=== PATIENT | male | born 2000 | race Caucasian/White ===

== ENCOUNTER 2021-01-28 18:03 | Emergency (ER) | payer OTHER, SELFPAY ==
--- NOTE | ~2021-01-28 | XR_ITS ---
EXAMINATION: RADIOGRAPHS LEFT HAND/WRIST CLINICAL INFORMATION: Rule out fracture COMPARISON: None TECHNIQUE: 4 views of the left hand/wrist were obtained. FINDINGS: Nondisplaced fracture through the body of the scaphoid bone. Carpal rows are maintained. No metacarpal or phalangeal fracture. Visualized portion of the distal radius and ulna demonstrate no fracture. No significant focal soft tissue swelling identified. No radiopaque foreign body. XR/XR hand wrist LT IMPRESSION: Nondisplaced scaphoid fracture.
[2021-01-28 19:39] VITALS: BP 141/77; PULSE 104; RESP 16; TEMP 36.6; O2SAT 95; BMI 22.3
--- NOTE | 2021-01-28 20:31 | ED.EXTPRO ---
HPI - Extremity Problem General Chief complaint: Extremity Injury, Upper Stated complaint: fall Time Seen by Provider: 01/28/21 20:00 Source: patient Mode of arrival: ambulatory Limitations: no limitations History of Present Illness HPI Narrative: Patient presents to the ED for left hand/wrist pain for 2 weeks after falling. Patient states pain ever since in to the ED today to be evaluated. MD Complaint: extremity pain Related Data Previous Rx's Medication Instructions Recorded naproxen 500 mg PO BID PRN #20 tab 01/28/21 Allergies Allergy/AdvReac Type Severity Reaction Status Date / Time No Known Allergies Allergy Verified 01/28/21 19:38 Review of Systems Review of Systems: Yes all other systems are reviewed and are negative Constitutional: Constitutional: Reports as per HPI and Reports no additional constitutional complaints Eyes: Eyes: Reports as per HPI and Reports no additional eye complaints ENT: Reports system reviewed and no additional complaints, except as documented and Reports as per HPI Cardiovascular: Cardiovascular: Reports as per HPI and Reports no additional cardiovascular complaints Respiratory: Respiratory: Reports as per HPI and Reports no additional respiratory complaints Gastrointestinal: Gastrointestinal: Reports as per HPI and Reports no additional gastrointestinal complaints Genitourinary: Genitourinary: Reports no additional male genitourinary complaints and Reports as per HPI Musculoskeletal: Musculoskeletal: Reports no additional musculoskeletal complaints, Reports as per HPI and Reports arthralgias (Left hand) Neurologic: Reports system reviewed and no additional complaints, except as documented and Reports as per HPI Psychiatric: Psychiatric: Reports no additional psychiatric complaints and Reports as per HPI [facility] Past Medical History Medical History (Updated 01/28/21 @ 20:45 by THERESA Venegas) No known health problems Social History Social History Advance Directives: No Physical Exam Vital Signs: Vital Signs: Last Vital Signs Temp 98 F 01/28/21 19:39 Pulse 104 H 01/28/21 19:39 Resp 16 01/28/21 19:39 BP 141/77 H 01/28/21 19:39 Pulse Ox 95 01/28/21 19:39 Body Mass Index 22.3 Const: General: cooperative, healthy appearing, comfortable, no acute distress, well developed, alert, awake and Physically active Orientation/consciousness: patient oriented x3 HENMT: Head: Yes normal to inspection, Yes No palpable skull fracture present, Yes normocephalic and Yes atraumatic Eyes: General: appearance normal, both eyes and all related structures Neck: Neck: Yes normal visual inspection, Yes full ROM, Yes no lymphadenopathy, Yes no meningeal signs, Yes trachea midline, Yes supple and No tender Chest: Chest palpation & inspection: normal inspection of the chest and normal palpation of entire chest wall Resp: Effort & Inspection: normal respiratory effort and able to speak in complete sentences Auscultation: clear to auscultation bilaterally Cardio: Jugular venous distension: no JVD Heart sounds: S1 normal heart sound present and S2 normal heart sound present GI: Inspection: Yes normal to inspection and No abdominal wall ecchymosis Palpation (GI): Soft to palpation, not firm, nontender, no guarding and not rigid : General: No CVA tenderness and Yes no CVA tenderness Back/Spine/Pelvis: Back: no CVA tenderness, No CVA tenderness and No back tenderness Skin: General skin exam: no rashes or lesions noted and elasticity normal Neuro: General: patient oriented x3, gait normal, no meningeal signs and CN's II-XI intact bilaterally Cranial nerves: Yes CN's II-XII intact bilaterally Extrem: General: Yes normal to inspection and Yes full ROM Hand/finger images: 1. Area of tenderness. Negative for any deformity, redness, his current, post discharge, or open wounds. Vascular and neuro exam is intact. Motor exam at wrist limited due to pain Psych: Appearance: grossly normal, well kempt and not disheveled Course Course Course Narrative: X-ray ordered to rule out fracture. Reevaluation(s) Reevaluation #1: X-ray shows scaphoid fracture. Patient placed in thumb spica splint. Time: 20:43 MDM - Extremity (Nontraumatic) MDM Narrative Medical decision making narrative: Scaphoid fracture Discharge Plan Discharge Clinical Impression: Fracture of scaphoid Patient Disposition: Home, Self-Care Instructions: Scaphoid Fracture (ED) Additional Instructions: X-ray shows scaphoid fracture. Return to the ED immediately for swelling, redness, blue discoloration of fingers, severe pain, numbness test tingling, or any other concerning symptoms. Prescriptions: New naproxen 500 mg tablet 500 mg PO BID PRN (Reason: pain) Qty: 20 RF: 0 Referrals: Aydin Mustafa MD [Physician] - 2 days ( left Scaphoid fracture) Stand Alone Forms: Work/School Release Interventions: ED Discharge Assessment Last Done: 01/28/21 22:00 Print Language: Mongolian
--- NOTE | 2021-01-28 21:59 | PC.NURSE ---
PT THUMB SPICA APPLIED TO LEFT HAND +CMS CHECKED BY THERESA GUERRA.
== END 2021-01-28 22:00 | disposition home or self-care (01) ==
PROVIDERS: Emergency Provider Emergency Medicine
DX: S62.002A Unspecified fracture of navicular [scaphoid] bone of left wrist, initial encounter for closed fracture (principal); W10.8XXA Fall (on) (from) other stairs and steps, initial encounter; Y93.89 Activity, other specified; Y92.9 Unspecified place or not applicable; Y99.9 Unspecified external cause status
CPT/HCPCS: 29125; 73110; 73130; 99283

== ENCOUNTER → 2021-01-30 10:57 | Outpatient (BNVA) | payer OTHER, SELFPAY | PROVIDERS: Visit Provider Physician Assistant | DX: S62.002A Unspecified fracture of navicular [scaphoid] bone of left wrist, initial encounter for closed fracture (principal) | CPT/HCPCS: 99202 ==

== ENCOUNTER 2021-02-18 16:43 | Outpatient (REF) | payer OTHER, SELFPAY ==
--- NOTE | ~2021-02-18 | MR_ITS ---
EXAMINATION: MR WRIST WITHOUT CONTRAST, LEFT CLINICAL INFORMATION: Scaphoid fracture. COMPARISON: Radiographs dated 01/28/2021. TECHNIQUE: Multiplanar MR imaging was obtained to the left wrist without contrast on a 1.5 Consuelo magnet. FINDINGS: Ligaments/TFCC: A punctate central perforation is present in the TFCC. Peripheral attachments are normal. Volar and dorsal radial ulnar ligaments and volar ulnocarpal ligaments are intact. Scapholunate and lunotriquetral ligaments are normal. Bones and Articular Cartilage: There is a transverse fracture through the scaphoid waist with slight apex dorsal angulation. Comminution of the dorsal cortex is suspected, though not well assessed on these images. Assessment is somewhat limited by motion artifact. Significant central trabecular bone resorption is present in the scaphoid extending from the fracture line into both the proximal and distal poles. The surrounding marrow is edematous with loss of normal fat signal intensity on T1-weighted images. This region of trabecular bone resorption measures 1.4 x 0.9 x 0.9 cm (longitudinal by transverse by AP). This cyst is occupied by both small cystic foci and heterogeneous intermediate to increased signal intensity material on T2-weighted images and low signal intensity material on T1-weighted images. Bones are otherwise intact and appropriately aligned. Joints appear well-preserved. Joint Fluid: No effusion or synovitis. Muscles and Tendons: Intact. No tendon tears or tenosynovitis. Normal muscle signal. Nerves: Carpal tunnel and Guyon's canal are unremarkable. Superficial Soft Tissues: No significant ganglion cysts. MR/MR wrist LT wo con IMPRESSION: Transverse fracture through the scaphoid with apex dorsal angulation. The marked trabecular bone resorption in the scaphoid is favored to be due to osseous remodeling at a site of subacute to chronic fracturing. A pre-existing lesion such as an enchondroma is on the differential, though felt to be less likely. Of note, there is marked edema signal throughout the scaphoid with significant loss of normal fat signal, particularly at the proximal pole, raising the possibility of fragment ischemia and osteonecrosis.
== END 2021-02-18 16:44 | disposition home or self-care (01) ==
LOC: HO.MRI 16:43
PROVIDERS: Visit Provider Physician Assistant
DX: S62.002A Unspecified fracture of navicular [scaphoid] bone of left wrist, initial encounter for closed fracture (principal)
CPT/HCPCS: 73221

== ENCOUNTER → 2021-02-24 13:58 | Outpatient (BNVA) | payer OTHER, SELFPAY | PROVIDERS: Visit Provider Orthopaedic Surgery | DX: S62.002K Unspecified fracture of navicular [scaphoid] bone of left wrist, subsequent encounter for fracture with nonunion (principal); M87.039 Idiopathic aseptic necrosis of unspecified carpus | CPT/HCPCS: 99202 ==